=== PATIENT | male | born 1985 | race Caucasian/White ===

== ENCOUNTER 2022-05-05 17:21 | Emergency (ER) | payer OTHER ==
[2022-05-05 17:44] VITALS: BP 129/73; PULSE 86; RESP 20; TEMP 98.5
[2022-05-05] MEDS ORDERED: VANCOMYCIN IV PER PHARMACY 1 EACH MISC MISCELLANE PRN (19:58)
[2022-05-05] MEDS ORDERED: VANCOMYCIN 1,500 MG in SODIUM CHLORIDE 0.9% 250 ML IVPB STA (20:07)
--- NOTE | 2022-05-05 20:29 | ED ---
General Adult HPI - General Chief complaint: Extremity Problem,Nontraumatic Stated complaint: Sent by for possible compartment syndrome Time Seen by Provider: 05/05/22 19:32 Source: patient, RN notes reviewed, old records reviewed Mode of arrival: ambulatory Limitations: no limitations - History of Present Illness Initial comments: She is a 36-year-old male who presents to this department complaining of left middle finger pain. Patient was seen on Friday over concern for cellulitis his finger. He was seen an outpatient urgent care. was on doxycycline. He presented today with worsening swelling of the left third digit, as well as pain. Was sent here from an urgent care for evaluation for flexor tenosynovitis. Denies fevers. Endorses slight numbness to the finger. Denies weakness. Is able to move it. At rest is left mostly in extension. Does have a history of multiple ortho surgeries as well as a history of compartment syndrome in his left lower extremity secondary to tib-fib surgery. Presents for further evaluation at this time. Patient does have a history of chronic pain and is on Suboxone.Patient works in a metal shop and believes that he likely had metal shavings embedded into his finger. X-ray at the outpatient urgent care showed no findings. Plan was initially at the distal tip of the finger but is extended to the entire finger. - Related Data Previous Rx's Medication Instructions Recorded Sulfamethox-Tmp 800-160Mg [Bactrim 1 tab PO Q12HR 5 Days #10 tab 05/05/22 DS 800-160 mg] Allergies Allergy/AdvReac Type Severity Reaction Status Date / Time amoxicillin [From Augmentin] Allergy Anaphylaxis Verified 05/05/22 17:44 clavulanic acid Allergy Anaphylaxis Verified 05/05/22 17:44 [From Augmentin] Gadolinium-Containing Allergy Nausea & Verified 05/05/22 17:44 Contrast Medi Vomiting Review of Systems ROS Statement: Those systems with pertinent positive or pertinent negative responses have been documented in the HPI. Review of Systems: CONST: Denies fever EYES: Denies blurry vision ENT: Denies nasal congestion C/V: Denies Chest pain RESP: Denies shortness of breath GI: Denies abdominal pain : Denies dysuria SKIN: Endorses left third digit swelling. MSK: Endorse's left third digit pain. NEURO: Denies headache ROS Other: All systems not noted in ROS Statement are negative. Past Medical History Additional Past Medical History / Comment(s): Arthritis, Tib Fib fx Past Surgical History: Back Surgery Past Psychological History: No Psychological Hx Reported Smoking Status: Never smoker Past Alcohol Use History: None Reported Past Drug Use History: None Reported General Exam - General Exam Comments Initial Comments: General: He is in mild distress secondary to finger pain. HEAD: Normal with no signs of head trauma. EYES: EOMI ENT: Hearing grossly intact, normal oropharynx. RESPIRATORY: Clear breath sounds bilaterally. No wheezes, rales, or rhonchi. C/V: Regular rate and rhythm. S1 and S2 auscultated, no edema, peripheral pulses 2+ and intact throughout ABD: Abd is soft, nontender, nondistended EXT: Sausage digit of the left third digit. Called at rest in full extension. No pain with passive extension. Tenderness to palpation along the flexor sheath of that digit. No extension of the swelling or erythema into the hand. Appears to be neurovascularly intact in the digit. SKIN: Erythema and swelling to the left third digit. NEURO: Alert and oriented x 4. Cranial nerves II-XII intact. No focal sensory or strength deficits. Limitations: no limitations Course Vital Signs 05/05/22 17:41 Temperature 98.5 F Pulse Rate 86 Respiratory 20 Rate Blood Pressure 129/73 O2 Sat by Pulse 99 Oximetry Medical Decision Making - Medical Decision Making Based on the patient's presentation and physical exam, I'm concerned for possible flexor tenosynovitis of the left third digit. He has 2 out of 4 [place] l signs. We will obtain basic labs, blood cultures. He will be started on vancomycin and cefoxitin. X-ray will be obtained. Patient was in agreement with this plan. He isn'tcomplaining of much pain at this time. There is no concern for compartment syndrome at this time. Patient's laboratory studies are remarkable for minimally elevated CRP of 3.1. No leukocytosis. X-ray of the left hand shows soft tissue swelling but no obvious metallic foreign body. Vital signs are within normal limits. I did contact orthopedic surgery, initially [facility] whose [facility] I was able to speak with. They're hand surgeon is not on-call this week and is not available. If I did touch base with the [facility] whose hand surgeon Dr. Staples is solution developer. She did accept the patient. States that she does not believe urgent intervention is required at this time and will evaluate the patient the morning. She was in agreement with the plan for antibiotics. I did discuss this with the patient. I did still recommend admission at this time, however he states he cannot miss work. He would like to leave AMA following antibiotic administration tonight.The patient was apprised of the potential risks of leaving the hospital AGAINST MEDICAL ADVICE, including serious complications, permanent disability, and . At the time of my interview the patient, the patient was alert, oriented, and capable. Patient signed AMA form, which was witnessed and signed by nursing staff, and placed in patient's chart. I urged the patient to return to the hospital as soon as possible to complete evaluation and treatment. He understands the risks involved including worsening infection of his left hand and finger. I did discuss the signs for worsening infection and possible flexor tenosynovitis and he states he will continue to watch out for signs including flexural posturing for comfort. I will provide him with a different antibiotic outpatient to use over the course of the next day. I urged him to return to the emergency department and hospital for further evaluation tomorrow. He expressed understanding was in agreement with this plan. He will be given a dose of cefoxitin as well as vancomycin prior to discharge against medical billing associate. ESR was minimally elevated. I did perfect serve Dr. Staples to update her that the patient will not be staying. She expressed understanding. Patient was discharged home AGAINST MEDICAL ADVICE following antibiotics. Was discharged home with a bactrim prescription. - Lab Data Result diagrams: 05/05/22 20:27 05/05/22 20:27 Lab Results 05/05/22 05/05/22 Range/Units 20:27 20:27 WBC 8.3 (3.8-10.6) k/uL RBC 4.33 (4.30-5.90) m/uL Hgb 13.4 (13.0-17.5) gm/dL Hct 38.7 L (39.0-53.0) % MCV 89.4 (80.0-100.0) fL MCH 30.9 (25.0-35.0) pg MCHC 34.6 (31.0-37.0) g/dL RDW 12.6 (11.5-15.5) % Plt Count 217 (150-450) k/uL MPV 7.7 Neutrophils % 77 % Lymphocytes % 17 % Monocytes % 4 % Eosinophils % 1 % Basophils % 0 % Neutrophils # 6.4 (1.3-7.7) k/uL Lymphocytes # 1.4 (1.0-4.8) k/uL Monocytes # 0.3 (0-1.0) k/uL Eosinophils # 0.1 (0-0.7) k/uL Basophils # 0.0 (0-0.2) k/uL ESR 17 H (0-15) mm/hr Sodium 139 (137-145) mmol/L Potassium 3.7 (3.5-5.1) mmol/L Chloride 104 (98-107) mmol/L Carbon Dioxide 26 (22-30) mmol/L Anion Gap 9 mmol/L BUN 12 (9-20) mg/dL Creatinine 0.63 L (0.66-1.25) mg/dL Est GFR (CKD-EPI)AfAm >90 (>60 ml/min/1.73 sqM) Est GFR (CKD-EPI)NonAf >90 (>60 ml/min/1.73 sqM) Glucose 138 H (74-99) mg/dL Calcium 8.2 L (8.4-10.2) mg/dL C-Reactive Protein 3.1 H (<1.0) mg/dL Disposition Clinical Impression: Finger infection, Cellulitis Narrative: Concern for flexor tenosynovitis Disposition: Left Against Medical Advice Instructions (If sedation given, give patient instructions): Tenosynovitis (ED) Additional Instructions: You are leaving Against Medical Advice. Please return if worsening swelling in the hand extending from the finger into the palm, if you have pain with e xtension of the finger, or worsening swelling. Return if any worsening or concerning symptoms. Can return for admission and IV antibiotics with orthopedic evaluation at any time. Prescriptions: Sulfamethox-Tmp 800-160Mg [Bactrim DS 800-160 mg] 1 tab PO Q12HR 5 Days #10 tab Is patient prescribed a controlled substance at d/c from ED?: No Referrals: Pablo Young DO [Primary Care Provider] - 1-2 days Erin Staples DO [Doctor of Osteopathic Medicine] - 1-2 days Time of Disposition: 21:30
[2022-05-05 20:57] LABS: Basophils % (A) 0 %; Eosinophils # (A) 0.1 k/uL (0-0.7); Eosinophils % (A) 1 %; HCT 38.7 % (39.0-53.0); HGB 13.4 gm/dL (13.0-17.5); Lymphocytes # (A) 1.4 k/uL (1.0-4.8); Lymphocytes % (A) 17 %; MCH 30.9 pg (25.0-35.0); MCHC 34.6 g/dL (31.0-37.0); MCV 89.4 fL (80.0-100.0); Mean Platelet Volume 7.7; Monocytes # (A) 0.3 k/uL (0-1.0); Monocytes % (A) 4 %; Neutrophils # (A) 6.4 k/uL (1.3-7.7); Neutrophils % (A) 77 %; Platelet Count 217 k/uL (150-450); RBC 4.33 m/uL (4.30-5.90); RDW 12.6 % (11.5-15.5); WBC 8.3 k/uL (3.8-10.6)
[2022-05-05 21:13] LABS: African American GFR (CKD) >90 (>60 ml/min/1.73 sqM); Anion Gap 9 mmol/L; Blood Urea Nitrogen 12 mg/dL (9-20); C Reactive Protein 3.1 mg/dL (<1.0); Calcium 8.2 mg/dL (8.4-10.2); Carbon Dioxide 26 mmol/L (22-30); Chloride 104 mmol/L (98-107); Glucose 138 mg/dL (74-99); Non-African American GFR(CKD) >90 (>60 ml/min/1.73 sqM); Potassium 3.7 mmol/L (3.5-5.1); Sodium 139 mmol/L (137-145)
[2022-05-05 21:54] LABS: Erythrocyte Sedimentation Rate 17 mm/hr (0-15)
--- NOTE | 2022-05-05 21:56 | XR ---
EXAMINATION TYPE: XR hand complete LT DATE OF EXAM: 05/05/2022 COMPARISON: NONE HISTORY: Cellulitis TECHNIQUE: Reviewed FINDINGS: There is some soft tissue swelling around the middle finger. I see no fracture nor dislocat ion. Joint spaces are normal. Metacarpals are intact. IMPRESSION: Soft tissue swelling. No fracture.
[2022-05-06] MEDS ORDERED: VANCOMYCIN 1,500 MG in SODIUM CHLORIDE 0.9% 250 ML IVPB SCH (05:00)
== END 2022-05-06 | disposition left against medical advice (07) ==
LOC: EC 17:21
DX: L03.012 Cellulitis of left finger (principal); Z88.0 Allergy status to penicillin; Z91.041 Radiographic dye allergy status; Z53.29 Procedure and treatment not carried out because of patient's decision for other reasons
CPT/HCPCS: 36415; 80048; 85652; 85025; 86140; 87040; 73130; 99283; 96365; 96366; 96367; J3370; J0694